=== PATIENT | female | born 1940 | race Two or more races ===

== ENCOUNTER 2021-04-09 21:11 | Inpatient (IN) | payer OTHER, BC ==
[~2021-04-09] VITALS: Ht 167.6 cm; Wt 81.6 kg
[2021-04-09] MEDS ORDERED: TOPROL XL25 MG PO (21:33)
[2021-04-09] MEDS ORDERED: CYCLOBENZAPRINE5 GM PO (21:34)
[2021-04-09] MEDS ORDERED: ATORVASTATIN CA10 MG PO (21:34)
[2021-04-09] MEDS ORDERED: COZAAR25 MG PO (21:34)
[2021-04-12] MEDS ORDERED: XARELTO10 MG PO (08:07)
[2021-04-12] MEDS ORDERED: BACTRIM DS TAB1 EACH PO (08:07)
[2021-04-12] MEDS ORDERED: OXYC1TAB9 PO (08:07)
[2021-04-12] MEDS ORDERED: INTEGRA PLUS C1 EACH PO (08:07)
== END 2021-04-12 15:24 | DRG 522 ==
LOC: ER 21:11 → SURG 04-10 01:24
PROVIDERS: ADMIT Orthopaedic Surgery Sports Medicine; ATTEND Orthopaedic Surgery Sports Medicine
PROC: 0SRR0JZ Replacement of Right Hip Joint, Femoral Surface with Synthetic Substitute, Open Approach (ICD-10-PCS; principal; 2021-04-10 11:45)
DX: S72.031A Displaced midcervical fracture of right femur, initial encounter for closed fracture (principal); I10 Essential (primary) hypertension; Z20.822 Contact with and (suspected) exposure to COVID-19; W18.39XA Other fall on same level, initial encounter